=== PATIENT | male | born 1980 | race Caucasian/White ===

== ENCOUNTER 2021-09-25 17:23 | Emergency (ER) | payer SELFPAY ==
[2021-09-25 18:15] VITALS: BP 135/88; PULSE 76; RESP 16; TEMP 36.7; O2SAT 98; BMI 29.0
--- NOTE | 2021-09-25 18:43 | XRR_ITS ---
PROCEDURE INFORMATION: Exam: XR Chest Exam date and time: 09/25/2021 6:23 PM Age: 40 years old Clinical indication: Pain; Chest pressure; Additional info: Cp TECHNIQUE: Imaging protocol: XR of the chest. Views: 1 view. COMPARISON: No relevant prior studies available. FINDINGS: Lungs: Unremarkable. No consolidation. Pleural spaces: Unremarkable. No pleural effusion. No pneumothorax. Heart/Mediastinum: Unremarkable. No cardiomegaly. Bones/joints: Unremarkable. XR/XR chest 1V portable 98080 IMPRESSION: No acute findings.
--- NOTE | 2021-09-25 19:17 | W.ED.CHESTPA ---
HPI - Chest Pain General: Chief Complaint: Chest Pain Stated Complaint: dizzy, L arm tingling Time Seen by Provider: 09/25/21 19:08 History of Present Illness: Patient is a 40-year-old male who comes to the ED with an episode of chest pain. Patient says symptoms started after work tonight. He was sitting and then stood up and felt a little bit of dizziness, left sided chest pain and some tingling in his left hand. The chest pain he describes is episodic and has short waves of chest pain on left side. Pain radiates down into left side of abdomen. He has never had pain like this before. He has a history of panic attacks when he was younger but has not had any for years now. Denies any shortness of breath, palpitations, nausea/vomiting, bladder or bowel symptoms. Denies any recent drug or alcohol use. Associated symptoms: Deny abdominal pain, dyspnea, fever(s), nausea, palpitations or vomiting Review of Systems Const: Denies: fever(s), chills or fatigue Eyes: Denies: change in vision or eye discomfort ENMT: Denies: throat pain, odynophagia, nasal discharge or nasal congestion Card: Reports: chest pain; Denies: palpitations, edema, swelling of feet/ankles, dyspnea on exertion or orthopnea Resp: Denies: dyspnea, productive cough or non-productive cough GI: Denies: abdominal pain, nausea, vomiting, diarrhea, constipation or hematochezia : Denies: flank pain, difficulty urinating, dysuria or hematuria Musc: Denies: neck pain, back pain or extremity swelling Skin/Breast: Denies: rash or new lesions Neuro: Reports: dizziness; Denies: headache(s), numbness in extremities or weakness in extremities [facility] ED PFSH: Medical History No pertinent family history No pertinent past medical history Physical Exam Const: COMMON NORMALS: no acute distress, patient oriented x3 and alert GENERAL APPEARANCE: cooperative and comfortable HENMT: COMMON NORMALS: normocephalic HEAD & SCALP: normocephalic MOUTH: Normal oral and palatal mucosa present THROAT: posterior oropharynx normal and uvula midline Neck/C-Spine: COMMON NORMALS: supple GENERAL: Yes normal visual inspection Resp: COMMON NORMALS: normal respiratory effort, No retractions, No use of accessory muscles and clear to auscultation bilaterally AUSCULTATION: clear to auscultation bilaterally Cardio: COMMON NORMALS: regular rate, regular rhythm, S1 normal heart sound present, S2 normal heart sound present, No gallops present (Cardio), No clicks present (Cardio), No murmurs present (Cardio) and Peripheral pulses 2+ throughout RATE: regular rate RHYTHM: regular rhythm HEART SOUNDS: S1 normal heart sound present and S2 normal heart sound present PERIPHERAL PULSES: Peripheral pulses 2+ throughout GI: COMMON NORMALS: Normal to inspection, nondistended, normoactive bowel sounds present, Soft to palpation, non-tender and no masses PALPATION: Yes Soft to palpation : COMMON NORMALS: Yes no CVA tenderness BLADDER/KIDNEY EXAM: Yes no CVA tenderness Back/Pelvis: COMMON NORMALS: no CVA tenderness Extremity: COMMON NORMALS: normal to inspection Neuro: COMMON NORMALS: patient oriented x3 and moves all extremities SENSORIUM/ORIENTATION: Yes alert Skin: GENERAL SKIN EXAM: dry skin Course Vital Signs: Vital signs: Vital Signs Temperature 98.0 F 09/25/21 18:15 Pulse Rate 78 09/25/21 20:42 Respiratory Rate 20 H 09/25/21 20:42 Blood Pressure 128/73 09/25/21 20:42 Pulse Oximetry 100 09/25/21 20:42 MDM - Chest Pain Medical Decision Making Patient is a 40-year-old male comes to the ED with episode of some chest pain on left side and dizziness. Symptoms started when changing positions from sitting to standing. Chest pain comes and goes since onset of symptoms. Denies any shortness of breath, fevers or cough. Vitals are stable. Patient appears nontoxic and in no acute distress or pain. rest of exam is benign. All labs are unremarkable. Troponin negative. EKG showed normal sinus, 77 bpm, rhythm with no ST segment elevation or depression seen. Chest x-ray showed no acute findings. Patient diagnosed with noncardiac chest pain and was stable for discharge home. Patient told to follow-up with his PCP in the next week for reevaluation. Return to ED precautions given. Patient understood and agreed with plan. Lab Data I reviewed the patient's lab results. : 09/25/21 19:35 09/25/21 19:35 Radiology Impressions Chest X-Ray 09/25/21 18:43 IMPRESSION: No acute findings. Laboratory Results WBC 9.6 10^3/uL (4.0-10.0) 09/25/21 19:35 RBC 5.64 10^6/uL (4.1-5.3) H 09/25/21 19:35 Hgb 16.5 g/dL (11.7-16.6) 09/25/21 19:35 Hct 48.6 % (42.0-52.0) 09/25/21 19:35 MCV 86.2 fl (80-94) 09/25/21 19:35 MCH 29.3 pg (28.0-34.0) 09/25/21 19:35 MCHC 34.0 g/dL (30.0-36.0) 09/25/21 19:35 RDW 13.0 % (12.1-15.1) 09/25/21 19:35 Plt Count 228 10^3/cmm (130-400) 09/25/21 19:35 MPV 10.7 fL (7.4-10.4) H 09/25/21 19:35 Neut % (Auto) 66.2 % 09/25/21 19:35 Lymph % (Auto) 24.8 % 09/25/21 19:35 [place] % (Auto) 5.0 % 09/25/21 19:35 Eos % (Auto) 3.4 % 09/25/21 19:35 Baso % (Auto) 0.5 % 09/25/21 19:35 Neut # (Auto) 6.36 10^3/uL (1.8-7.7) 09/25/21 19:35 Lymph # (Auto) 2.4 10^3/uL (0.8-4.8) 09/25/21 19:35 [place] # (Auto) 0.5 10^3/uL (0.2-0.9) 09/25/21 19:35 Eos # (Auto) 0.3 10^3/uL (0.0-0.8) 09/25/21 19:35 Baso # (Auto) 0.1 10^3/uL (0.0-0.1) 09/25/21 19:35 Nucleated RBC % (auto) 0 % 09/25/21 19:35 Nucleated RBCs # 0.0 /100WBC 09/25/21 19:35 Sodium 143 mmol/L (136-145) 09/25/21 19:35 Potassium 4.3 mmol/L (3.5-5.1) 09/25/21 19:35 Chloride 104 mmol/L (98-107) 09/25/21 19:35 Carbon Dioxide 27 mmol/L (22-29) 09/25/21 19:35 Anion Gap 16.3 (5-19) 09/25/21 19:35 BUN 9 mg/dL (6-20) 09/25/21 19:35 Creatinine 0.8 mg/dL (0.7-1.2) 09/25/21 19:35 GFR Calculation 108.2 mL/min (90-130) 09/25/21 19:35 Glucose 88 mg/dL (65-115) 09/25/21 19:35 Calculated Osmolality 294 mOsm/kg (285-295) 09/25/21 19:35 Calcium 10.0 mg/dL (8.5-10.5) 09/25/21 19:35 Total Bilirubin 0.4 mg/dL (0.15-1.2) 09/25/21 19:35 AST 23 U/L (0-40) 09/25/21 19:35 ALT 26 U/L (0-41) 09/25/21 19:35 Alkaline Phosphatase 87 IU/L (40-130) 09/25/21 19:35 Troponin T Baseline 6 ng/L (0-15) 09/25/21 19:35 Total Protein 7.3 g/dL (6.6-8.7) 09/25/21 19:35 Albumin 5.0 g/dL (3.5-5.2) 09/25/21 19:35 Globulin 2.3 g/dL (1.3-4.6) 09/25/21 19:35 Urine Color Yellow (Yellow) 09/25/21 18:59 Urine Appearance Clear (CLEAR) 09/25/21 18:59 Urine pH 8 (5-7) H 09/25/21 18:59 Ur Specific [place] 1.010 (1.005-1.030) 09/25/21 18:59 Urine Protein Neg (Negative) 09/25/21 18:59 Urine Glucose (UA) Norm (Normal) 09/25/21 18:59 Urine Ketones Negative (Negative) 09/25/21 18:59 Urine Blood Neg (Negative) 09/25/21 18:59 Urine Nitrate Negative (Negative) 09/25/21 18:59 Urine Bilirubin Neg (Negative) 09/25/21 18:59 Prot Sulfosalicylic Acd Negative (Negative) 09/25/21 18:59 Urine Urobilinogen Norm mg/dL (Negative) 09/25/21 18:59 Ur Leukocyte Esterase Negative (Negative) 09/25/21 18:59 EKG Data EKG 1: EKG interpretation date: 09/25/21 Interpretation: Normal sinus rhythm, 70 bpm, no ST segment elevation or depression seen. Discharge Plan Discharge Patient Disposition: Home Clinical Impression: Non-cardiac chest pain Condition: Stable Discharge Orders: Discharge ED (Routine); Ordered 09/25/21 Ordered By: Lucho Angeles Discharge Diet: Regular Discharge Activity: Increase activity as tolerated Activity Restrictions/Additional Instructions: Follow-up with medical provider as directed in the next 7 days for reevaluation. He can take [id number] ibuprofen or Tylenol for any pain. Return to the ER or your medical provider if condition worsens. Please read and understand discharge instructions. Thank you for choosing [facility] for your healthcare needs today. Please realize this is an emergency room and that we are providing you with a medical screening exam and this may not be complete and all inclusive of all the testing and or work up that you may need to determine your ailment or severity of your illness. It is very important that you follow up as instructed or that you return to the Emergency Department should you have concerns or if your condition changes or worsens in any way. Coding Level of Care Code ED Audio Video Mechanic for Roxanne Aguiar Exam Comprehensive
[2021-09-25 19:23] LABS: Add Urine Microscopic? NO; Charge for UA Resulting for Rev
[2021-09-25 19:28] LABS: Urine Appearance Clear (CLEAR); Urine Color Yellow (Yellow); pH Urine 8 (5-7)
[2021-09-25 19:29] LABS: Bilirubin Urine Neg (Negative); Blood Urine Neg (Negative); Glucose Urine UA Norm (Normal); Ketones Urine Negative (Negative); Leukocyte Esterase Urine Negative (Negative); Nitrate Urine Negative (Negative); Protein Urine Neg (Negative); Sulfosalicylic Acid Urine Negative (Negative); Urobilinogen Urine Norm (Negative)
[2021-09-25 19:42] LABS: Basophils # 0.1 10^3/uL (0.0-0.1); Basophils % 0.5 %; Eosinophils # 0.3 10^3/uL (0.0-0.8); Eosinophils % 3.4 %; Hematocrit 48.6 % (42.0-52.0); Hemoglobin 16.5 g/dL (11.7-16.6); Lymphocytes # 2.4 10^3/uL (0.8-4.8); Lymphocytes % 24.8 %; Mean Corpuscular Hemoglobin 29.3 pg (28.0-34.0); Mean Corpuscular Volume 86.2 fl (80-94); Mean Platelet Volume 10.7 fL (7.4-10.4); Monocytes # 0.5 10^3/uL (0.2-0.9); Neutrophils # 6.36 10^3/uL (1.8-7.7); Neutrophils % 66.2 %; Nucleated Red Blood Cells % 0 %; Platelet Count 228 10^3/cmm (130-400); Red Blood Count 5.64 10^6/uL (4.1-5.3); White Blood Count 9.6 10^3/uL (4.0-10.0)
[2021-09-25 20:09] LABS: Alanine Aminotransferase 26 U/L (0-41); Alkaline Phosphatase 87 IU/L (40-130); Anion Gap 16.3 (5-19); Aspartate Amino Transferase 23 U/L (0-40); Blood Urea Nitrogen 9 mg/dL (6-20); Carbon Dioxide 27 mmol/L (22-29); Chloride 104 mmol/L (98-107); Globulin 2.3 g/dL (1.3-4.6); Glomerular Filtration Rate 108.2 mL/min (90-130); Glucose 88 mg/dL (65-115); Osmolality Calculated 294 mOsm/kg (285-295); Potassium 4.3 mmol/L (3.5-5.1); Sodium 143 mmol/L (136-145); Total Bilirubin 0.4 mg/dL (0.15-1.2); Total Protein 7.3 g/dL (6.6-8.7)
[2021-09-25 20:10] LABS: Troponin(5th) Baseline 6 ng/L (0-15)
[2021-09-25 20:42] VITALS: BP 128/73; PULSE 78; RESP 20; O2SAT 100
--- NOTE | 2021-09-25 20:43 | ECG_ITS ---
[facility] Test Date: 2021-09-25 Pat Name: Ruben Espinal Department: Room: Gender: Male Intellectual Property Counsel: : 1980 Requested By: Dima Chua Order Number: [id number] Chirag MD: Wilda Ovalles M.D. Measurements Intervals [place] Rate: 77 P: 54 AL: 159 QRS: 72 QRSD: 97 T: 37 QT: 353 QTc: 399 Interpretive Statements SINUS RHYTHM INCOMPLETE RIGHT BUNDLE BRANCH BLOCK [90+ ms QRS DURATION, TERMINAL R IN V1/V2, 40+ ms S IN I/aVL/V4/V5/V6] No previous ECG available for comparison Electronically Signed On 09-26-2021 20:27:53 CDT by Wilda Ovalles M.D. [email or web address]
== END 2021-09-25 20:43 | disposition home or self-care (01) ==
PROVIDERS: Emergency Medicine; Emergency Provider Physician Assistant
DX: R07.89 Other chest pain (principal)
CPT/HCPCS: 71045; 80053; 81003; 84484; 85025; 93005; 99283

== ENCOUNTER 2022-07-28 02:38 | Emergency (ER) | payer SELFPAY ==
[2022-07-28 02:46] VITALS: BP 149/95; PULSE 90; RESP 16; TEMP 36.7; O2SAT 99; BMI 29.0
--- NOTE | 2022-07-28 02:47 | ED_ITS ---
HPI - Extremity Injury (Upper) General: Chief Complaint: General Medical Stated Complaint: ring stuck on hand Time Seen by Provider: 07/28/22 02:41 History of Present Illness: 41-year-old male patient comes in tonight with a ring to his left ring finger that he needs removed. Patient reports that his significant other wants the ring back after their separation. Patient has been unable to get the ring off. Review of Systems Musc: Reports: other (Inability to remove ring.) PFS ED PFSH: Medical History No pertinent family history No pertinent past medical history Physical Exam Const: COMMON NORMALS: alert HENMT: COMMON NORMALS: normocephalic HEAD & SCALP: normocephalic Resp: COMMON NORMALS: normal respiratory effort Cardio: COMMON NORMALS: regular rate RATE: regular rate Extremity: NARRATIVE EXTREMITY EXAM: Patient has a ring that he is unable to remove from his left ring finger, no significant swelling. LEFT UPPER EXTREMITY: Yes hand & digits (Prompt cap refill to all digits, no significant swelling to finger) Neuro: SENSORIUM/ORIENTATION: Yes alert Procedures Foreign Body Removal Site: left and hand (Ring finger) Description of foreign body: other (Ranging) Technique: other (Dremel tool to cut off ring) Confirmed by:: direct visualization Complications: pain (Superficial burn) Course Vital Signs: Vital signs: Vital Signs Temperature 98.1 F 07/28/22 02:46 Pulse Rate 90 07/28/22 02:46 Respiratory Rate 16 07/28/22 02:46 Blood Pressure 149/95 07/28/22 02:46 Pulse Oximetry 99 07/28/22 02:46 Oxygen Delivery Me thod 07/28/22 02:46 MDM - Extremity Injury (Upper) Medical Decision Making Patient comes in tonight with a ring stuck on his left finger. On exam patient has normal range of motion of the digits, no significant swelling and prompt capillary refill is noted. Differential diagnosis includes foreign body, vascular occlusion, neuralgia. No signs of serious injury was noted. Ring was cut from the finger using a Dremel tool. Patient sustained a minor first-degree burn to the dorsal aspect of the finger. Wound was covered with bacitracin ointment and Band-Aid. Patient was recommended continue with bacitracin ointment and follow-up with primary care as needed. Patient reported understanding. Discharge Plan Discharge Patient Disposition: Home Clinical Impression: Tight ring on finger Condition: Stable Prescriptions: New bacitracin 500 unit/gram ointment 1 applic topical BID Qty: 28 0RF Discharge Orders: Discharge ED (Routine); Ordered 07/28/22 Ordered By: Jairon Owens Discharge Diet: Usual diet Discharge Activity: Increase activity as tolerated Patient Instructions: Acute Wounds (ED) Activity Restrictions/Additional Instructions: apply bacitracin ointment to wound on finger until healed Coding Level of Care Code ED Business Office Associate for Chg Fwd Exam Detailed
== END 2022-07-28 04:04 | disposition home or self-care (01) ==
PROVIDERS: Emergency Provider Nurse Practitioner Family
DX: S60.445A External constriction of left ring finger, initial encounter (principal); W49.04XA Ring or other jewelry causing external constriction, initial encounter
CPT/HCPCS: 99283

== ENCOUNTER 2023-11-11 00:54 | Emergency (ER) | payer SELFPAY ==
[2023-11-11 01:01] VITALS: BP 122/82; PULSE 82; RESP 17; TEMP 36.6; O2SAT 96; BMI 30.9
[2023-11-11] MEDS: dexamethasone 4 mg Tablet 10 MG PO (02:10)
[2023-11-11] MEDS: diphenhydrAMINE 25 mg Capsule PO (02:10)
--- NOTE | 2023-11-11 05:54 | ED_ITS ---
HPI - Skin/Abscess/Foreign Bdy General: Chief complaint: Skin/Abscess/Foreign Body Stated complaint: Rash Time Seen by Provider: 11/11/23 01:43 History of Present Illness: 42-year-old male with an itchy rash to h is upper extremities bilaterally, and anterior trunk. It started as what appear to be bite sena to him. He has a new piece of furniture that he got from a neighbor, and seem to notice the itching and rash following obtaining this chair. Associated symptoms: Deny fever(s) or vomiting Review of Systems Const: Denies: fever(s) ENMT: Denies: throat pain Card: Denies: chest pain or palpitations Resp: Denies: dyspnea or productive cough GI: Denies: abdominal pain or vomiting PFSH ED PFSH: Medical History No pertinent family history No pertinent past medical history Physical Exam Const: COMMON NORMALS: no acute distress GENERAL APPEARANCE: cooperative; not ill appearing HENMT: COMMON NORMALS: normocephalic, atraumatic and Normal external nose present HEAD & SCALP: normocephalic and atraumatic NOSE: Normal external nose present Eye: COMMON NORMALS: Equal, round and reactive pupils present and EOMs intact bilaterally PUPIL: Yes Equal, round and reactive pupils present Neck/C-Spine: GENERAL: Yes trachea midline Chest: CHEST: Yes Symmetrical chest wall rise Resp: COMMON NORMALS: normal respiratory effort and No use of accessory muscles Neuro: PADILLA COMA SCALE: document GCS findings Vowinckel coma scale eye opening: Spontaneous Vowinckel coma scale verbal response: Orientated Padilla coma scale motor response: Obey commands Vowinckel coma scale total score: 15 Psych: COMMON NORMALS: mental status grossly normal Skin: NARRATIVE SKIN EXAM: Skin reveals punctate erythematous papules with hemorrhagic centers. There is also macular papular erythematous rash surrounding. Burrowing sena are not necessarily noted. Course Vital Signs: Vital signs: Vital Signs Temperature 97.8 F 11/11/23 01:01 Pulse Rate 82 11/11/23 01:01 Respiratory Rate 17 11/11/23 01:01 Blood Pressure 122/82 11/11/23 01:01 Pulse Oximetry 96 11/11/23 01:01 Oxygen Delivery Me thod Room Air 11/11/23 01:01 MDM - Skin/Abscess/Foreign Bdy Medicial Decision Making A couple of the gentleman spots do look like dermatophytosis type lesions. He has secondary contact dermatitis as well. He will be treated as such. Primary care follow-up. Return for worsening. No radiology studies performed this visit Discharge Plan Discharge Patient Disposition: Home Clinical Impression: Dermatophytosis, Contact dermatitis Condition: Stable Prescriptions: New Medrol (Aneudy) 4 mg tablets,dose pack See Rx Instructions .ROUTE .COMPLEX Qty: 21 0RF Rx Instructions: orally per package directions Benadryl 25 mg capsule 25 mg PO Q6H PRN (Reason: allergy symptoms) Qty: 60 0RF permethrin 5 % cream 1 applic topical Q14D Qty: 60 0RF Rx Instructions: apply second treatment 14 days after first treatment if live lice remain No Action bacitracin 500 unit/gram ointment 1 applic topical BID Qty: 28 0RF Discharge Orders: Discharge ED (Routine); Ordered 11/11/23 Ordered By: Naren Webber Patient Instructions: Contact Dermatitis (ED), Opioid Safety, Pain Management Activity Restrictions/Additional Instructions: Use the lotion as directed to kill any potential dermatophytes. Heat can kill dermatophytes on clothing and furniture as we discussed. Return for any worsening symptoms despite treatment. Coding Level of Care Code ED Cylinder Sander Operator for Roxanne Aguiar
== END 2023-11-11 02:12 | disposition home or self-care (01) ==
PROVIDERS: Emergency Provider Emergency Medicine
DX: B35.4 Tinea corporis (principal); L25.9 Unspecified contact dermatitis, unspecified cause
CPT/HCPCS: 99283; J8540

== ENCOUNTER 2023-12-01 19:41 | Emergency (ER) | payer OTHER, SELFPAY ==
[2023-12-01 19:52] VITALS: BP 131/84; PULSE 72; RESP 17; TEMP 36.6; O2SAT 98; BMI 30.7
--- NOTE | 2023-12-01 20:11 | ED_ITS ---
Documented by User: DANN Castillo 12/01/23 20:21 HPI - Skin/Abscess/Foreign Bdy General: Chief complaint: Skin/Abscess/Foreign Body Stated complaint: Rash Time Seen by Provider: 12/01/23 19:59 Source: patient Mode of arrival: ambulatory Limitations: no limitations History of Present Illness: Patient is a 6-year-old male presenting to the emergency department complaining of a rash onset 1 month. 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 He states that the rash is never really gone away, and has been made worse since a fishing trip he just recently got back from. He states that he just wants those medications that he was supposed to get, and would like something for relief at this time. He notes that he is not having any tongue or throat swelling, and has not had any breathing difficulties. Rash is primarily to the left upper extremity, though it is also to his left abdominal wall. No other symptoms reported this time. However, he does note that it is itchy. MD complaint: rash Onset (ago): month(s) Associated symptoms: Deny chills, fever(s), nausea or vomiting Review of Systems General: Reports: 10 or more systems reviewed and unremarkable except in HPI and below Const: Denies: fever(s), chills or fatigue Eyes: Denies: change in vision ENMT: Denies: throat pain, ear or mastoid pain or nasal discharge Card: Denies: chest pain, palpitations, swelling of feet/ankles or lightheadedness Resp: Denies: dyspnea, productive cough or wheezing GI: Denies: abdominal pain, nausea, vomiting, diarrhea or constipation : Denies: flank pain, difficulty urinating, dysuria or urinary frequency Musc: Denies: neck pain, back pain or joint pain Skin/Breast: Reports: rash and pruritus Neuro: Denies: headache(s), numbness in extremities or weakness in extremities PFS ED PFSH: Medical History No pertinent past medical history No pertinent family history Physical Exam Const: COMMON NORMALS: no acute distress, patient oriented x3 and no limitations GENERAL APPEARANCE: cooperative, comfortable and disheveled ORIENTATION/CONSCIOUSNESS: Yes awake, Yes oriented to person, Yes oriented to place and Yes oriented to time HENMT: COMMON NORMALS: normocephalic, atraumatic and hearing grossly normal bilaterally HEAD & SCALP: normocephalic and atraumatic OTHER: No tongue or throat swelling Eye: COMMON NORMALS: Equal, round and reactive pupils present, EOMs intact bilaterally and conjunctivae normal CONJUNCTIVA: Yes conjunctivae normal PUPIL: Yes Equal, round and reactive pupils present Neck/C-Spine: COMMON NORMALS: full ROM, supple and no JVD Resp: COMMON NORMALS: normal respiratory effort, No retractions, No use of accessory muscles and clear to auscultation bilaterally AUSCULTATION: clear to auscultation bilaterally Cardio: COMMON NORMALS: no JVD, regular rate, regular rhythm, No clicks present (Cardio), No murmurs present (Cardio) and No rub (Cardio) RATE: regular rate RHYTHM: regular rhythm Extremity: COMMON NORMALS: normal to inspection, full ROM and capillary refill normal Neuro: COMMON NORMALS: patient oriented x3, moves all extremities, no focal motor deficits and no sensory deficits noted SENSORIUM/ORIENTATION: Yes oriented to person, Yes oriented to place and Yes oriented to time Psych: COMMON NORMALS: mental status grossly normal and Normal thought process present THOUGHT PROCESS: Normal thought process present Skin: NARRATIVE SKIN EXAM: Erythematous pruritic rash primarily to left forearm and left flank region. No vesicles or active bleeding or oozing. 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 He has no change to the rash other than noting it has mildly improved. 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 Reasons to return discussed, patient will follow-up with primary care. No radiology studies performed this visit Discharge Plan Discharge Patient Disposition: Home Clinical Impression: Contact dermatitis Condition: Stable Prescriptions: New triamcinolone acetonide 0.1 % cream 1 applic topical BID Qty: 15 0RF Continued permethrin 5 % cream 1 applic topical Q14D Qty: 60 0RF Rx Instructions: apply second treatment 14 days after first treatment if live lice remain Benadryl 25 mg capsule 25 mg PO Q6H PRN (Reason: allergy symptoms) Qty: 60 0RF Medrol (Aneudy) 4 mg tablets,dose pack See Rx Instructions .ROUTE .COMPLEX Qty: 21 0RF Rx Instructions: orally per package directions No Action bacitracin 500 unit/gram ointment 1 applic topical BID Qty: 28 0RF Discharge Orders: Discharge ED (Routine); Ordered 12/01/23 Ordered By: Chacho Sandra Discharge Diet: Usual diet Discharge Activity: Increase activity as tolerated Patient Instructions: Contact Dermatitis (ED) Activity Restrictions/Additional Instructions: Avoid any potential triggers. Take medications as prescribed. Avoid itching. Follow-up with primary care. Return with any new or worsening. Coding Level of Care Code ED Traffic Engineering Director for Chg Fwd Documented by User: Arpan Ceja DO 12/10/23 07:03 HPI - Skin/Abscess/Foreign Bdy General: Chief complaint: Skin/Abscess/Foreign Body Stated complaint: Rash Time Seen by Provider: 12/01/23 19:59 [facility] ED PFSH: Medical History No pertinent past medical history No pertinent family history Course Vital Signs: Vital signs: Vital Signs Temperature 97.9 F 12/01/23 19:52 Pulse Rate 74 12/01/23 21:18 Respiratory Rate 14 12/01/23 21:18 Blood Pressure 132/81 12/01/23 21:18 Pulse Oximetry 97 12/01/23 21:18 Oxygen Delivery Me thod Room Air 12/01/23 19:52 MDM - Skin/Abscess/Foreign Bdy Medicial Decision Making Patient presents with a rash for the past month, was initially seen here and 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 He has no change to the rash other than noting it has mildly improved. 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 Reasons to return discussed, patient will follow-up with primary care. Chart reviewed Discharge Plan Discharge Patient Disposition: Home Clinical Impression: Contact dermatitis Condition: Stable Prescriptions: New triamcinolone acetonide 0.1 % cream 1 applic topical BID Qty: 15 0RF Continued permethrin 5 % cream 1 applic topical Q14D Qty: 60 0RF Rx Instructions: apply second treatment 14 days after first treatment if live lice remain Benadryl 25 mg capsule 25 mg PO Q6H PRN (Reason: allergy symptoms) Qty: 60 0RF Medrol (Aneudy) 4 mg tablets,dose pack See Rx Instructions .ROUTE .COMPLEX Qty: 21 0RF Rx Instructions: orally per package directions No Action bacitracin 500 unit/gram ointment 1 applic topical BID Qty: 28 0RF Discharge Orders: Discharge ED (Routine); Ordered 12/01/23 Ordered By: Chacho Sandra Discharge Diet: Usual diet Discharge Activity: Increase activity as tolerated Patient Instructions: Contact Dermatitis (ED) Activity Restrictions/Additional Instructions: Avoid any potential triggers. Take medications as prescribed. Avoid itching. Follow-up with primary care. Return with any new or worsening. Coding Level of Care Code ED Traffic Engineering Director for Roxanne Aguiar
[2023-12-01] MEDS: diphenhydrAMINE 50 mg Capsule PO (20:27)
[2023-12-01] MEDS: dexamethasone 10 mg/mL INJ IM (20:28)
[2023-12-01 21:18] VITALS: BP 132/81; PULSE 74; RESP 14; O2SAT 97
== END 2023-12-01 21:18 | disposition home or self-care (01) ==
PROVIDERS: Emergency Provider Physician Assistant
DX: L25.9 Unspecified contact dermatitis, unspecified cause (principal)
CPT/HCPCS: 96372; 99284; J1100; Q0163

== ENCOUNTER 2025-02-10 03:01 | Emergency (ER) | payer OTHER, SELFPAY ==
[2025-02-10 03:10] VITALS: BP 123/86; PULSE 73; RESP 17; TEMP 36.7; O2SAT 98; BMI 32.3
[2025-02-10 03:32] VITALS: BP 111/86; PULSE 75; O2SAT 98
--- NOTE | 2025-02-10 03:43 | W.ED.SKABFB ---
HPI - Skin/Abscess/Foreign Bdy General: Chief complaint: Skin/Abscess/Foreign Body Stated complaint: Red spots on neck, back and Lt arm Time Seen by Provider: 02/10/25 03:26 History of Present Illness: Patient comes in with a rash which she states has been going on for about a week. States it does not seem to be getting any better. On physical exam he has numerous erythematous papules on his bilateral forearms in a linear fashion. He also has multiple erythematous papules on the back of his neck also in a linear fashion. He denies any exposure to poison katelyn or other outside plants. No significant erythema or signs of infection. We talked about contact dermatitis symptoms, treatment. We also discussed symptoms that should prompt immediate return to the emergency department. Will discharge at this time with precautions to return for worsening or changing symptoms. Related Data Previous Rx's ?Medication ?Instructions ?Recorded bacitracin 500 unit/gram topical 1 applic topical BID #28 grams 07/28/22 ointment diphenhydramine HCl 25 mg capsule 25 mg PO Q6H PRN allergy symptoms 12/01/23 (Benadryl) #60 caps methylprednisolone 4 mg tablets in See Rx Instructions PO .COMPLEX 12/01/23 a dose pack (Medrol (Aneudy)) #21 ea permethrin 5 % topical cream 1 applic topical Q14D 2 doses #60 12/01/23 grams triamcinolone acetonide 0.1 % 1 applic topical BID #15 grams 12/01/23 topical cream Allergies Allergy/AdvReac Type Severity Reaction Status Date / Time No Known Allergies Allergy Verified 12/01/23 19:56 Review of Systems Skin/Breast: Reports: rash [facility] [place] ED [facility] [place]: Medical History (Updated 02/10/25 @ 03:43 by Sukhwinder Burdick MD) No pertinent past medical history No pertinent family history Physical Exam Skin: NARRATIVE SKIN EXAM: Multiple erythematous papules in a linear fashion of bilateral forearms and the back of the neck, no significant erythema or signs of infection Course Vital Signs: Vital signs: Vital Signs Temperature 98.1 F 02/10/25 03:10 Pulse Rate 75 02/10/25 03:32 Respiratory Rate 17 02/10/25 03:10 Blood Pressure 111/86 02/10/25 03:32 Pulse Oximetry 98 02/10/25 03:32 Oxygen Delivery Me thod Room Air 02/10/25 03:32 MDM - Skin/Abscess/Foreign Bdy Medicial Decision Making n No radiology studies performed this visit Discharge Plan Discharge Patient Disposition: Home Clinical Impression: Contact dermatitis Condition: Stable Prescriptions: No Action bacitracin 500 unit/gram ointment 1 applic topical BID Qty: 28 0RF permethrin 5 % cream 1 applic topical Q14D Qty: 60 0RF Rx Instructions: apply second treatment 14 days after first treatment if live lice remain Benadryl 25 mg capsule 25 mg PO Q6H PRN (Reason: allergy symptoms) Qty: 60 0RF Medrol (Aneudy) 4 mg tablets,dose pack See Rx Instructions .ROUTE .COMPLEX Qty: 21 0RF Rx Instructions: orally per package directions triamcinolone acetonide 0.1 % cream 1 applic topical BID Qty: 15 0RF Discharge Orders: Discharge ED (Routine); Ordered 02/10/25 Ordered By: Sukhwinder Burdick Patient Instructions: Contact Dermatitis (ED), Patient Portal & Joanna Instructions Print Language: Monegasque Coding Level of Care Code ED [employer] Laboratory Assistant for Roxanne Aguiar
[2025-02-10 03:48] VITALS: BP 127/89; PULSE 69; O2SAT 98
== END 2025-02-10 03:52 | disposition home or self-care (01) ==
PROVIDERS: Emergency Provider Emergency Medicine
DX: L25.9 Unspecified contact dermatitis, unspecified cause (principal)
CPT/HCPCS: 99282